=== PATIENT | male | born 1980 | race Two or more races ===

== ENCOUNTER 2024-11-01 19:18 | Emergency (ER) | payer MEDICAID ==
[~2024-11-01] VITALS: Ht 167.6 cm; Wt 73.0 kg
[~2024-11-01 19:18] MED LIST: PANT20TA PO
[2024-11-01 19:53] VITALS: TEMP 98.5
[2024-11-01] MEDS: HYDROCODONE/ACETAMINOPHEN 5-325 MG TABLET PO ONE (20:53)
[2024-11-01 20:54] VITALS: BP 121/75; PULSE 54; RESP 20; O2SAT 100
[2024-11-01] MEDS ORDERED: HYDR-4072 PO (21:30)
== END 2024-11-01 22:08 | disposition home or self-care (01) ==
LOC: EMS 19:18
DX: S52.502A Unspecified fracture of the lower end of left radius, initial encounter for closed fracture (principal); Z79.899 Other long term (current) drug therapy; W01.0XXA Fall on same level from slipping, tripping and stumbling without subsequent striking against object, initial encounter; Y93.66 Activity, soccer; Y92.89 Other specified places as the place of occurrence of the external cause; Y99.8 Other external cause status
CPT/HCPCS: 99284; 73110-TC; 73130-TC; Z7502; Z7610